=== PATIENT | female | born 1990 | race Caucasian/White ===

== ENCOUNTER 2016-08-08 13:13 | Emergency (ER) | payer OTHER ==
[2016-08-08] MEDS ORDERED: SODIUM CHLORIDE 0.9% 1,000 ML IV STA ×2 (14:09)
[2016-08-08] MEDS ORDERED: KETOROLAC 30 MG/ML 1 ML VIAL IVP STA (14:10)
[2016-08-08] MEDS ORDERED: methylPREDNISolone SOD SUCCI 125 MG/2 ML VIAL IV STA (14:11)
--- NOTE | 2016-08-08 14:22 | ED ---
General Adult HPI - General Chief complaint: Recheck/Abnormal Lab/Rx Stated complaint: Walking causes pain Time Seen by Provider: 08/08/16 13:58 Source: patient Mode of arrival: ambulatory Limitations: no limitations - History of Present Illness Initial comments: This 26-year-old white female presents with a complaint of some generalized body aches and pains. She states that she has had this for one month. It affects her joints as well as essentially all muscle groups. She states that it is difficult to even ambulate at this time due to the pain. She apparently was seen at an urgent care a couple weeks ago and received a steroid shot as well as a course of steroids and states that this completely resolved her symptoms. She is ran a temperature of approximately 99 but nothing higher. She denies any sore throat. She apparently was checked for mono at the urgent care and this was negative. She is told that she potentially could have lupus or some other type of rheumatologic condition. She has not followed up with a primary care physician for her condition as of yet. She denies any headaches. She denies any previous similar incidents. She does relate feeling very fatigued and will have increased sleep. No other complaints or modifying factors. - Related Data Previous Rx's Medication Instructions Recorded predniSONE 20 mg PO BID #10 tab 08/08/16 Allergies Allergy/AdvReac Type Severity Reaction Status Date / Time morphine Allergy Unknown Verified 08/08/16 14:09 Review of Systems ROS Statement: Those systems with pertinent positive or pertinent negative responses have been documented in the HPI. ROS Other: All systems not noted in ROS Statement are negative. Past Medical History Additional Past Medical History / Comment(s): LEFT HAND MASS History of Any Multi-Drug Resistant Organisms: None Reported Past Surgical History: Appendectomy Additional Past Surgical History / Comment(s): MASS REMOVED FROM LEFT HAND IN 2013 Past Anesthesia/Blood Transfusion Reactions: No Reported Reaction Past Psychological History: No Psychological Hx Reported Smoking Status: Never smoker Past Alcohol Use History: None Reported Past Drug Use History: None Reported - Past Family History Mother Family Medical History: No Reported History General Exam - General Exam Comments Initial Comments: GENERAL: The patient is well nourished and well hydrated. VITAL SIGNS: Heart rate, blood pressure, respiratory rate reviewed as recorded in nurse's notes. EYES: Pupils are round and reactive. Extraocular movements are intact. No conjunctival / lid redness or swelling. ENT: No external evidence of injury, swelling, or ecchymosis. Airway is patent. Throat is clear. NECK: Nontender. No swelling or evidence of injury. No subcutaneous emphysema. Trachea is midline. No thyroid mass. HEART: Regular rate and rhythm. Good peripheral pulses. LUNGS/CHEST: Breath sounds clear and equal bilaterally. No rales, rhonchi, or wheezes. No ecchymosis, subcutaneous emphysema, or tenderness. ABDOMEN: Abdomen soft without tenderness. No palpable masses or organomegaly. No peritoneal signs. No abdominal wall swelling or ecchymosis. EXTREMITIES: There is mild diffuse tenderness throughout extremities. There is no swelling. Normal muscle tone and function. No thoracolumbar tenderness. Strength is intact. NEUROLOGIC: Sensation is grossly intact. Cranial nerve exam reveals face is symmetrical, tongue is midline, speech is clear. SKIN: No abrasions or ecchymosis is noted. No induration or masses noted. PSYCHIATRIC: Alert and oriented. Appropriate behavior and judgment. Limitations: no limitations Course Vital Signs 08/08/16 08/08/16 13:18 14:22 Temperature 99.1 F Pulse Rate 92 73 Respiratory 18 16 Rate Blood Pressure 123/80 109/60 O2 Sat by Pulse 100 98 Oximetry Medical Decision Making - Medical Decision Making The patient was seen and examined. All diagnostics were reviewed. An IV is established and she is hydrated. She received Solu-Medrol venously as well as Toradol. The laboratory is reviewed and is essentially all within normal limits. Overall, it is felt as though she likely does have some type of rheumatologic condition like lupus or potentially a neurologic condition like MS. It is felt that she would benefit from follow-up with a supervisor fireworks assembly and neurologist for further evaluation and treatment. She is agreeable with this plan. It is also stressed that she be following up with her primary care physician to help coordinate care. She'll be placed on steroids as this did help significantly last time. - Lab Data Result diagrams: 08/08/16 14:00 08/08/16 14:00 Lab Results 08/08/16 08/08/16 08/08/16 Range/Units 14:00 14:00 14:00 WBC 8.6 (3.8-10.6) k/uL RBC 3.74 L (3.80-5.40) m/uL Hgb 12.0 (11.4-16.0) gm/dL Hct 35.2 (34.0-46.0) % MCV 94.0 (80.0-100.0) fL MCH 32.2 (25.0-35.0) pg MCHC 34.2 (31.0-37.0) g/dL RDW 12.4 (11.5-15.5) % Plt Count 249 (150-450) k/uL Neutrophils % 73 % Lymphocytes % 16 % Monocytes % 7 % Eosinophils % 2 % Basophils % 0 % Neutrophils # 6.3 (1.3-7.7) k/uL Lymphocytes # 1.4 (1.0-4.8) k/uL Monocytes # 0.6 (0-1.0) k/uL Eosinophils # 0.2 (0-0.7) k/uL Basophils # 0.0 (0-0.2) k/uL Sodium 141 (137-145) mmol/L Potassium 4.0 (3.5-5.1) mmol/L Chloride 105 (98-107) mmol/L Carbon Dioxide 26 (22-30) mmol/L Anion Gap 10 mmol/L BUN 12 (7-17) mg/dL Creatinine 0.73 (0.52-1.04) mg/dL Est GFR (MDRD) Af Amer >60 (>60 ml/min/1.73 sqM) Est GFR (MDRD) Non-Af >60 (>60 ml/min/1.73 sqM) Glucose 89 (74-99) mg/dL Calcium 9.5 (8.4-10.2) mg/dL Total Bilirubin 0.6 (0.2-1.3) mg/dL AST 17 (14-36) U/L ALT 21 (9-52) U/L Alkaline Phosphatase 82 (38-126) U/L Total Protein 7.3 (6.3-8.2) g/dL Albumin 3.8 (3.5-5.0) g/dL TSH 0.801 (0.465-4.680) mIU/L HCG, Qual Not Detected Heterophile Antibody Negative (Negative) Disposition Clinical Impression: Myalgia and myositis, unspecified, Fatigue Disposition: HOME SELF-CARE Condition: Good Instructions: Polymyositis (ED), Fatigue (ED) Prescriptions: predniSONE 20 mg PO BID #10 tab Referrals: Polly Lockett DO [Primary Care Provider] - 1-2 days Diane Glez MD [STAFF PHYSICIAN] - 08/12/16 Bony Holman MD [STAFF PHYSICIAN] - 08/12/16 Time of Disposition: 15:51
[2016-08-08 14:29] LABS: Basophils % (A) 0 %; CH 32.1; CHCM 34.3; Eosinophils # (A) 0.2 k/uL (0-0.7); Eosinophils % (A) 2 %; HCT 35.2 % (34.0-46.0); HDW 2.58; Luc # (Auto) 0.11; Luc % (Auto) 1; Lymphocytes # (A) 1.4 k/uL (1.0-4.8); Lymphocytes % (A) 16 %; MCH 32.2 pg (25.0-35.0); MCHC 34.2 g/dL (31.0-37.0); Mean Platelet Volume 7.8; Monocytes # (A) 0.6 k/uL (0-1.0); Monocytes % (A) 7 %; Neutrophils # (A) 6.3 k/uL (1.3-7.7); Neutrophils % (A) 73 %; RBC 3.74 m/uL (3.80-5.40); RDW 12.4 % (11.5-15.5); WBC 8.6 k/uL (3.8-10.6); WBC (Perox) 8.92
[2016-08-08 14:40] LABS: ALT 21 U/L (9-52); AST 17 U/L (14-36); Alkaline Phosphatase 82 U/L (38-126); Anion Gap 10 mmol/L; Blood Urea Nitrogen 12 mg/dL (7-17); Calcium 9.5 mg/dL (8.4-10.2); Carbon Dioxide 26 mmol/L (22-30); Chloride 105 mmol/L (98-107); Glucose 89 mg/dL (74-99); Non-African American GFR(MDRD) >60 (>60 ml/min/1.73 sqM); Sodium 141 mmol/L (137-145); Total Bilirubin 0.6 mg/dL (0.2-1.3); Total Protein 7.3 g/dL (6.3-8.2)
[2016-08-08 14:46] LABS: HCG,Qualitative Serum Not Detected
[2016-08-08 16:03] VITALS: BP 95/58; PULSE 80; RESP 18; TEMP 98.8
== END 2016-08-08 16:03 | disposition home or self-care (01) ==
LOC: EC 13:13
DX: M60.9 Myositis, unspecified (principal); R53.83 Other fatigue; Z88.5 Allergy status to narcotic agent
CPT/HCPCS: 36415; 80053; 84443; 85025; 86308; 84703; 99283; 96374; 96375; 96361; J2930; J1885

== ENCOUNTER 2019-05-07 15:05 | Emergency (ER) | payer BC, OTHER ==
[2019-05-07 15:13] VITALS: BP 123/89; PULSE 86; RESP 20; TEMP 98.5
[2019-05-07] MEDS ORDERED: KETOROLAC 30 MG/ML 1 ML VIAL IM STA (15:51)
--- NOTE | 2019-05-07 15:55 | ED ---
General Adult HPI - General Chief complaint: Dental/Oral Stated complaint: Facial swelling, unable to swallow Time Seen by Provider: 05/07/19 15:18 Source: patient, family, RN notes reviewed Mode of arrival: ambulatory Limitations: no limitations - History of Present Illness Initial comments: 29 year old female presents for dental pain. This is an ongoing for the past couple days. States she now has swelling in her right lower jaw. States she had a root canal in this area before. States she has not seen her dentist in the last couple years. States she did take her tramadol which she has at home for fibromyalgia but that did not help. Denies fevers or chills. Denies neck pain or stiffness. Denies trismus or difficulty swallowing.Patient has no other complaints at this time including shortness of breath, chest pain, abdominal pain, nausea or vomiting, headache, or visual changes. - Related Data Previous Rx's Medication Instructions Recorded predniSONE 20 mg PO BID #10 tab 08/08/16 Clindamycin [Cleocin] 450 mg PO Q8HR 7 Days #63 capsule 05/07/19 Allergies Allergy/AdvReac Type Severity Reaction Status Date / Time morphine Allergy Unknown Verified 05/07/19 15:12 Review of Systems ROS Statement: Those systems with pertinent positive or pertinent negative responses have been documented in the HPI. ROS Other: All systems not noted in ROS Statement are negative. Past Medical History Additional Past Medical History / Comment(s): LEFT HAND MASS History of Any Multi-Drug Resistant Organisms: None Reported Past Surgical History: Appendectomy Additional Past Surgical History / Comment(s): MASS REMOVED FROM LEFT HAND IN 2013 Past Anesthesia/Blood Transfusion Reactions: No Reported Reaction Past Psychological History: No Psychological Hx Reported Smoking Status: Never smoker Past Alcohol Use History: None Reported Past Drug Use History: None Reported - Past Family History Mother Family Medical History: No Reported History General Exam Limitations: no limitations General appearance: alert, in no apparent distress Head exam: Present: atraumatic, normocephalic, normal inspection Eye exam: Present: normal appearance, PERRL, EOMI. Absent: scleral icterus, conjunctival injection ENT exam: Present: normal exam, mucous membranes moist, TM's normal bilaterally, normal external ear exam. Absent: normal oropharynx (She does have mild edema noted of the right lower jaw consistent with dental edema. This is soft nonindurated and non-erythematous. She does have tenderness to tooth 30. There is no dental abscess visualized or palpated along the gumline that can be drained.) Course Vital Signs 05/07/19 15:10 Temperature 98.5 F Pulse Rate 86 Respiratory 20 Rate Blood Pressure 123/89 O2 Sat by Pulse 99 Oximetry Medical Decision Making - Medical Decision Making She presents for dental pain. Nonfebrile. No sublingual edema. No neck pain or stiffness. Patient is is some external right lower jaw edema with tenderness to tooth 30 with palpation using a tongue blade. Patient has an ALLERGY to penicillin she reports. Therefore she will be prescribed clindamycin. She will follow-up with her dentist by calling tomorrow. Patient already has tramadol at home and will continue to take this as well as Motrin. Patient denies any chance of requests IM injection of Toradol. This was given to her. Disposition Clinical Impression: Pain, dental Disposition: HOME SELF-CARE Condition: Good Instructions (If sedation given, give patient instructions): Toothache (ED), Dental Abscess (ED) Additional Instructions: Please take Motrin and tramadol for pain. He may ice the area. Take antibiotic as directed. Follow-up with your dentist as soon as possible. Given any worsening symptoms return to the emergency department. Prescriptions: Clindamycin [Cleocin] 450 mg PO Q8HR 7 Days #63 capsule Is patient prescribed a controlled substance at d/c from ED?: No Referrals: Mahi Santos MD [Primary Care Provider] - 1-2 days Time of Disposition: 15:54
== END 2019-05-07 16:00 | disposition home or self-care (01) ==
LOC: EC 15:05
DX: K08.89 Other specified disorders of teeth and supporting structures (principal); R60.0 Localized edema; Z88.0 Allergy status to penicillin; Z88.5 Allergy status to narcotic agent
CPT/HCPCS: 99283; 96372; J1885

== ENCOUNTER 2019-06-27 16:29 | Emergency (ER) | payer BC, OTHER ==
[2019-06-27 16:33] VITALS: BP 126/84; PULSE 73; RESP 18; TEMP 97.8
[2019-06-27] MEDS ORDERED: KETOROLAC 30 MG/ML 1 ML VIAL IM STA (17:01)
[2019-06-27] MEDS ORDERED: ACET/COD 300 MG/30 MG STARTER PACK 6 TAB BTL PO STA (17:03)
--- NOTE | 2019-06-27 17:05 | ED ---
General Adult HPI - General Chief complaint: Dental/Oral Stated complaint: Dental pain Time Seen by Provider: 06/27/19 16:33 Source: patient, RN notes reviewed Mode of arrival: ambulatory Limitations: no limitations - History of Present Illness Initial comments: 29-year-old female presents to the emergency determine for chief complaint of dental pain. Patient states she has pain in the same tooth that she had pain couple months ago. She did not follow-up with a dentist. States it is no swelling on the inside of her mouth. She denies fevers or chills. Denies neck stiffness. Denies trismus. Patient handling oral secretions without difficulty. Denies any swelling to the outside of the face or gums. Denies any sublingual edema.Patient has no other complaints at this time including shortness of breath, chest pain, abdominal pain, nausea or vomiting, headache, or visual changes. - Related Data Previous Rx's Medication Instructions Recorded predniSONE [Deltasone] 20 mg PO BID #10 tab 08/08/16 Clindamycin [Cleocin] 450 mg PO Q8HR 7 Days #63 capsule 05/07/19 Clindamycin [Cleocin] 450 mg PO Q8HR 7 Days #63 cap 06/27/19 Allergies Allergy/AdvReac Type Severity Reaction Status Date / Time morphine Allergy Unknown Verified 06/27/19 16:33 Review of Systems ROS Statement: Those systems with pertinent positive or pertinent negative responses have been documented in the HPI. ROS Other: All systems not noted in ROS Statement are negative. Past Medical History Additional Past Medical History / Comment(s): LEFT HAND MASS History of Any Multi-Drug Resistant Organisms: None Reported Past Surgical History: Appendectomy Additional Past Surgical History / Comment(s): MASS REMOVED FROM LEFT HAND IN 2013 Past Anesthesia/Blood Transfusion Reactions: No Reported Reaction Past Psychological History: No Psychological Hx Reported Smoking Status: Never smoker Past Alcohol Use History: None Reported Past Drug Use History: None Reported - Past Family History Mother Family Medical History: No Reported History General Exam Limitations: no limitations General appearance: alert, in no apparent distress Head exam: Present: atraumatic, normocephalic, normal inspection Eye exam: Present: normal appearance, PERRL, EOMI. Absent: scleral icterus, conjunctival injection, periorbital swelling ENT exam: Present: normal exam, mucous membranes moist, TM's normal bilaterally, normal external ear exam. Absent: normal oropharynx (Patient has abscess of tooth 30 noted along the inner gum line. this is small 0.5 cm x 0.5 cm) Neck exam: Present: normal inspection, full ROM. Absent: tenderness, meningismus, lymphadenopathy Respiratory exam: Present: normal lung sounds bilaterally. Absent: respiratory distress, wheezes, rales, rhonchi, stridor Cardiovascular Exam: Present: regular rate, normal rhythm, normal heart sounds. Absent: systolic murmur, diastolic murmur, rubs, gallop, clicks Course Vital Signs 06/27/19 16:29 Temperature 97.8 F Pulse Rate 73 Respiratory 18 Rate Blood Pressure 126/84 O2 Sat by Pulse 99 Oximetry Medical Decision Making - Medical Decision Making No facial edema or erythema. No sublingual edema. No trismus. Patient handling oral secretions. No distress. He will. Patient has abscess noted of tooth of lower gumline. This was incised and drained without difficulty using an 18-gauge. Purulent Material expelled. Patient was put on clindamycin as she has a penicillin ALLERGY. I discussed that she needs to follow up with dentistry to discuss the importance of this as she has been seen here for the same dental infection several times. She will return for any worsening symptoms. Disposition Clinical Impression: Dental abscess Disposition: HOME SELF-CARE Condition: Good Instructions (If sedation given, give patient instructions): Dental Abscess (ED) Additional Instructions: Please take Motrin for pain. If pain is severe take Tylenol 3. Do not drive or operate machinery while taking Tylenol 3. Take your antibiotic as directed. Follow-up with dentist as soon as possible. Return to the emergency department if you develop any worsening symptoms. [facility] Address: [address] [place], [place] [id number] Prescriptions: Clindamycin [Cleocin] 450 mg PO Q8HR 7 Days #63 cap Is patient prescribed a controlled substance at d/c from ED?: No Referrals: Mahi Santos MD [REFERRING] - 1-2 days Time of Disposition: 17:03
== END 2019-06-27 17:12 | disposition home or self-care (01) ==
LOC: EC 16:29
DX: K04.7 Periapical abscess without sinus (principal); Z88.0 Allergy status to penicillin; Z88.5 Allergy status to narcotic agent
CPT/HCPCS: 96372; 99283; 41800; J1885

== ENCOUNTER 2019-07-30 00:56 | Emergency (ER) | payer BC, OTHER ==
[2019-07-30 01:04] VITALS: BP 126/84; PULSE 80; RESP 18; TEMP 98
--- NOTE | 2019-07-30 01:11 | ED ---
ENT HPI - General Chief complaint: ENT Stated complaint: Sore throat Time Seen by Provider: 07/30/19 01:10 Source: patient Mode of arrival: ambulatory Limitations: no limitations - History of Present Illness Initial comments: Patient is a 29-year-old female presenting to the emergency department with chief complaint of a sore throat. Patient states she had a sore throat about one week ago but her bladder was not let her return to work on that she has a work note. States other urgent care to close at this time in the emergency department is the only place open. Patient denies any complaints at this time. - Related Data Previous Rx's Medication Instructions Recorded predniSONE [Deltasone] 20 mg PO BID #10 tab 08/08/16 Clindamycin [Cleocin] 450 mg PO Q8HR 7 Days #63 capsule 05/07/19 Clindamycin [Cleocin] 450 mg PO Q8HR 7 Days #63 cap 06/27/19 Allergies Allergy/AdvReac Type Severity Reaction Status Date / Time morphine Allergy Unknown Verified 06/27/19 16:33 Review of Systems ROS Statement: Those systems with pertinent positive or pertinent negative responses have been documented in the HPI. ROS Other: All systems not noted in ROS Statement are negative. Past Medical History Additional Past Medical History / Comment(s): LEFT HAND MASS History of Any Multi-Drug Resistant Organisms: None Reported Past Surgical History: Appendectomy Additional Past Surgical History / Comment(s): MASS REMOVED FROM LEFT HAND IN 2013 Past Anesthesia/Blood Transfusion Reactions: No Reported Reaction Past Psychological History: No Psychological Hx Reported Smoking Status: Never smoker Past Alcohol Use History: None Reported Past Drug Use History: None Reported - Past Family History Mother Family Medical History: No Reported History General Exam Limitations: no limitations General appearance: alert, in no apparent distress Head exam: Present: atraumatic, normocephalic, normal inspection Eye exam: Present: normal appearance, PERRL, EOMI Pupils: Present: normal accommodation ENT exam: Present: normal exam, normal oropharynx, mucous membranes moist, TM's normal bilaterally, normal external ear exam Neck exam: Present: normal inspection, full ROM Respiratory exam: Present: normal lung sounds bilaterally Cardiovascular Exam: Present: regular rate, normal rhythm, normal heart sounds Extremities exam: Present: normal inspection, full ROM Back exam: Present: normal inspection, full ROM Neurological exam: Present: alert, oriented X3 Psychiatric exam: Present: normal affect, normal mood Skin exam: Present: warm, dry, intact, normal color Course Vital Signs 07/30/19 00:58 Temperature 98 F Pulse Rate 80 Respiratory 18 Rate Blood Pressure 126/84 O2 Sat by Pulse 98 Oximetry Medical Decision Making - Medical Decision Making Patient is a 29-year-old female presenting to emergency Department with a chief complaint of a sore throat. Patient only came to emergency department to get a work note to clear her to go to work in the morning. Patient denies a sore throat about one week ago but is not symptomatic currently. Return parameters discussed. Case discussed with physician Disposition Clinical Impression: Sore throat Disposition: HOME SELF-CARE Condition: Stable Instructions (If sedation given, give patient instructions): Tonsillitis (ED) Additional Instructions: Return to emergency department if symptoms worsen. Is patient prescribed a controlled substance at d/c from ED?: No Referrals: Mahi Santos MD [Primary Care Provider] - 1-2 days Time of Disposition: 01:11
== END 2019-07-30 01:20 | disposition home or self-care (01) ==
LOC: EC 00:56
DX: J02.9 Acute pharyngitis, unspecified (principal); Z88.5 Allergy status to narcotic agent
CPT/HCPCS: 99282

== ENCOUNTER → 2020-01-14 | Outpatient (CLI) | payer OTHER | END | disposition home or self-care (01) | LOC: LABWHC1 12:53 | PROVIDERS: ATTEND Emergency Medicine | DX: Z20.828 Contact with and (suspected) exposure to other viral communicable diseases (principal) | CPT/HCPCS: U0003; C9803 ==